=== PATIENT | male | born 1980 | race African-American/Black ===

== ENCOUNTER 2019-06-08 06:25 | Day surgery (SDC) | payer OTHER ==
[~2019-06-08] VITALS: Ht 177.8 cm; Wt 106.6 kg
--- NOTE | ~2019-06-08 | OR ---
[facility] [address] [place], [place] [address] Draft DATE OF OPERATION: 06/08/2019 SURGEON: Boubacar Santos MD PREOPERATIVE DIAGNOSIS: Episodic hematochezia. POSTOPERATIVE DIAGNOSIS: Extensive external and moderate internal hemorrhoids, otherwise normal colon and rectum. PROCEDURE: Total colonoscopy to cecum. ANESTHESIA: Intravenous sedation, fentanyl 100 mcg, Versed 4 mg. INDICATION: This 38-year-old black man is a prisoner at [facility] and a patient of Dr. Tripathi. He has had episodic hematochezia. He is known to have hemorrhoidal disease with protruding hemorrhoidal tissue on straining. He is considered to have a family history of colon cancer in a paternal grandfather. There is no family history of inflammatory bowel disease. He is admitted at this time to undergo colonoscopy to better characterize the problem, understanding the risks of bleeding, infection, perforation, and so on. FINDINGS: The prep was excellent. Complete colonoscopy was undertaken to the cecum without question. The only finding that would account for his bleeding was extensive external and some internal hemorrhoidal change. There were no polyps, diverticular formation, colitis, or cancer. DESCRIPTION OF PROCEDURE: The patient was brought to the endoscopy suite and placed in lateral decubitus position, given intravenous sedation to the point of slurred speech and nystagmus. Digital rectal examination showed external hemorrhoidal disease, which was rather extensive. There was no obvious fissure. An Olympus video colonoscope was passed in the rectum and manipulated throughout the colon, ultimately intubating the cecum without question. The ileocecal valve and appendiceal orifice were normal. The scope was withdrawn from that point. Careful inspection upon withdrawal of scope showed no sign of abnormality at all. Retroflexed PATIENT NAME: BECKIE GRIGGS OPERATIVE REPORT DATE OF : 80 REPORT #: [id number] PHYSICIAN: BOUBACAR SANTOS MD PCP: BERNADINE TRIPATHI MD REPORT IS CONFIDENTIAL AND NOT TO BE RELEASED WITHOUT AUTHORIZATION [facility] [address] [place] [id number] Draft view did not show extensive internal hemorrhoidal change. Careful inspection to the anal canal and reintroduction of the scope confirmed external hemorrhoidal disease and less internal hemorrhoidal disease. The scope was removed and the patient was taken to recovery room in good condition. CONCLUDING DIAGNOSIS: Hematochezia, likely related to hemorrhoidal disease after all. There is no evidence of fissure. PLAN: Recommend fiber supplement such as Metamucil one scoop p.o. daily. If persistent bleeding, consideration for an operative hemorrhoidectomy. He will return to the ongoing care of Dr. Tripathi. I am happy to see him in the longterm clinic at next available time for further consideration of operative management. MD BONNIE Brito/MIGUELITOL /[id number] cc: Dr. Tripathi [facility] Copies: ~ PATIENT NAME: BECKIE GRIGGS OPERATIVE REPORT DATE OF : 80 REPORT #: [id number] PHYSICIAN: BOUBACAR SANTOS MD PCP: BERNADINE TRIPATHI MD REPORT IS CONFIDENTIAL AND NOT TO BE RELEASED WITHOUT AUTHORIZATION
--- NOTE | 2019-06-08 08:17 | NUR ---
06/08/19 0817 [facility] ARRIVED IN PACU SLEEPY WITH NO C/O'S. ABD SOFT. TRANSPORT GUARDS AT BEDSIDE.
== END 2019-06-08 08:50 | disposition home or self-care (01) ==
LOC: DS 06:25 → OPS 06:25 → DS 06:45 → OPS 08:50
PROVIDERS: Surgery
PROC: 0DJD8ZZ Inspection of Lower Intestinal Tract, Via Natural or Artificial Opening Endoscopic (ICD-10-PCS; principal; 2019-06-08 06:45)
DX: K64.8 Other hemorrhoids (principal); K64.4 Residual hemorrhoidal skin tags; Z80.0 Family history of malignant neoplasm of digestive organs
CPT/HCPCS: 99153; G0500; J2250; J3010; J7120

== ENCOUNTER 2022-10-16 14:09 | Emergency (ER) | payer OTHER ==
[~2022-10-16] VITALS: Ht 177.8 cm; Wt 106.6 kg
--- NOTE | 2022-10-17 16:43 | EKG ---
[facility] [address] [facility] [place] [address] Signed Normal sinus rhythm Nonspecific ST and T wave abnormality Abnormal ECG No previous ECGs available Confirmed by SULY GUIDRY MD ([id number]) on 10/17/2022 4:43:27 PM Electronically Signed By: SULY GUIDRY MD 10/17/221642 PATIENT NAME: BECKIE GRIGGS Electrocardiogram DATE OF : 80 PHYSICIAN: SULY GUIDRY MD REPORT #: [id number] REPORT IS CONFIDENTIAL AND NOT TO BE RELEASED WITHOUT AUTHORIZATION
== END 2022-10-16 20:00 | disposition home or self-care (01) ==
LOC: ED 14:09
DX: D64.9 Anemia, unspecified (principal); Z87.891 Personal history of nicotine dependence
CPT/HCPCS: 36415; 36430; 71045; 80053; 85025; 85060; 85610; 85730; 86850; 86900; 86901; 86922; 93005; 93010; 99284-25; J7040; P9016